=== PATIENT | female | born 1990 | race Two or more races ===

== ENCOUNTER → 2019-10-26 | Outpatient (CLI) | payer OTHER | END | disposition home or self-care (01) | LOC: PRENATAL 11:00 | PROVIDERS: ATTEND Obstetrics & Gynecology Maternal & Fetal Medicine | DX: O35.0XX1 Maternal care for (suspected) central nervous system malformation in fetus, fetus 1 (principal); O35.3XX1 Maternal care for (suspected) damage to fetus from viral disease in mother, fetus 1; O98.512 Other viral diseases complicating pregnancy, second trimester; O99.89 Other specified diseases and conditions complicating pregnancy, childbirth and the puerperium; Z36.89 Encounter for other specified antenatal screening; Z3A.21 21 weeks gestation of pregnancy ==

== ENCOUNTER 2019-11-21 22:44 | Outpatient (CLI) | payer OTHER ==
[2019-11-21] MEDS ORDERED: PRENATAL TABLE1 EAC1 PO (22:46)
== END 2019-11-22 13:05 | disposition home or self-care (01) ==
LOC: OBS/DEL 22:44
PROVIDERS: ATTEND Obstetrics & Gynecology
DX: O26.892 Other specified pregnancy related conditions, second trimester (principal); R10.2 Pelvic and perineal pain

== ENCOUNTER 2020-01-03 16:20 | Inpatient (IN) | payer OTHER ==
[~2020-01-03] VITALS: Ht 170.2 cm; Wt 107.0 kg
[~2020-01-03 16:20] MED LIST: PRENATAL TABLE1 EAC1 PO
== END 2020-01-07 16:55 | disposition home or self-care (01) | DRG 833 ==
LOC: LDR 16:20 → OB/GYN 01-04 20:02
PROVIDERS: ADMIT Obstetrics & Gynecology; ATTEND Obstetrics & Gynecology
PROC: 4A1HXFZ Monitoring of Products of Conception, Cardiac Rhythm, External Approach (ICD-10-PCS; principal; 2020-01-03)
PROC: BY4FZZZ Ultrasonography of Third Trimester, Single Fetus (ICD-10-PCS; 2020-01-04)
DX: O60.03 Preterm labor without delivery, third trimester (principal); Z3A.32 32 weeks gestation of pregnancy; Z20.828 Contact with and (suspected) exposure to other viral communicable diseases

== ENCOUNTER 2020-02-25 05:05 | Inpatient (IN) | payer OTHER ==
[~2020-02-25] VITALS: Ht 170.2 cm; Wt 110.2 kg
== END 2020-02-27 11:06 | disposition home or self-care (01) | DRG 807 ==
LOC: LDR 05:05 → OB/GYN 05:05
PROVIDERS: ADMIT Obstetrics & Gynecology; ATTEND Obstetrics & Gynecology
PROC: 10E0XZZ Delivery of Products of Conception, External Approach (ICD-10-PCS; principal; 2020-02-25)
PROC: 0KQM0ZZ Repair Perineum Muscle, Open Approach (ICD-10-PCS; 2020-02-25)
PROC: 4A1HXFZ Monitoring of Products of Conception, Cardiac Rhythm, External Approach (ICD-10-PCS; 2020-02-25)
DX: O70.1 Second degree perineal laceration during delivery (principal); Z37.0 Single live birth; Z3A.39 39 weeks gestation of pregnancy; Z20.822 Contact with and (suspected) exposure to COVID-19